=== PATIENT | female | born 1970 | race Caucasian/White ===

== ENCOUNTER 2020-08-22 08:22 | Outpatient (REF) | payer BC, SELFPAY ==
--- NOTE | 2020-08-24 11:41 | MHC.AU.P13 ---
Adult Audiological Evaluation Date of Visit: 08/22/20 Reason for Appointment: Audiological evaluation to monitor the status of Ms. Pope's hearing loss. She has a known bilateral high-frequency sensorineural hearing loss. She uses hearing aids bilaterally. She denies any significant changes to her hearing or medical history. Previous Hearing Test Results[place] [facility] [place]Mild sloping to severe sensorineural hearing loss bilaterally. Medical History: Medical History: Thyroid Disease Hearing Instrument History- Right Ear: Shake Backboard Notcher: Phonak Model: [employer] [id number] Serial Number: [id number] Battery Size: 312 Repair Warranty: 06/01/2015 Loss and Damage Warranty: 06/01/2015 Dispensed By: [facility] Date of Fittin03/09/2013 Hearing Instrument History- Left Ear: Shake Backboard Notcher: Phonak Model: [employer] [id number] Serial Number: [id number] Battery Size: 312 Warranty: 06/01/2015 Loss and Damage Warranty: 06/01/2015 Dispensed By: [facility] Date of Fittin03/09/2013 Otoscopy: Right Ear: Unremarkable Left Ear: Unremarkable Tympanometry: Tympanometry performed due to: To assess integrity of the middle ear system Right Ear: Normal Middle Ear System (Type A) Left Ear: Normal Middle Ear System (Type A) Hearing Evaluation: Transducer(s) Used: Insert Earphones, Bone Conduction Method: Conventional Audiometry Stimuli Used: Pure Tones Right Ear: Description of Hearing: Normal hearing from 250-1500 Hz, sloping to a mild to moderately severe sensorineural hearing loss from 3908-9464 Hz. Left Ear: Description of Hearing: Normal hearing from 250-1500 Hz, sloping to a mild to severe sensorineural hearing loss from 3532-5043 Hz. Speech Recognition Threshold (SRT): Method Used: Monitored Live Voice Stimuli Used: Spondee Words Right Ear: 15 dBHL Left Ear: 15 dBHL Word Discrimination: Method: Recorded Lists Word Lists Used: NU-6 Right Ear: 100% at 65 dBHL Left Ear: 96% at 65 dBHL Comparison: Compared to the most recent evaluation: Hearing is stable. Recommendations: Audiological re-evaluation in one year. Hearing aid maintenance performed today. Given the age of her current hearing aids, Ms. Pope may benefit from updated amplification. It was recommended that she contact [facility] to see if she is eligible for benefits. Diagnosis: Primary Diagnosis: H90.3 Bilateral Sensorineural Hearing Loss Services Performed: Comprehensive Audiological Evaluation (CPT 84712) Tympanometry (CPT 50911) Signature: Provider: Jing Lockett, CCC-A
== END 2020-08-22 08:23 | disposition home or self-care (01) ==
LOC: HO.SH 08:22
PROVIDERS: Visit Provider Pediatrics
DX: H90.3 Sensorineural hearing loss, bilateral (principal)
CPT/HCPCS: 92557; 92567

== ENCOUNTER 2020-08-22 09:08 | Outpatient (REF) | payer SELFPAY | END 2020-08-22 09:09 | disposition home or self-care (01) | LOC: HO.HAP 09:08 | PROVIDERS: Visit Provider Pediatrics | DX: Z46.1 Encounter for fitting and adjustment of hearing aid (principal); H90.3 Sensorineural hearing loss, bilateral | CPT/HCPCS: V5267 ==

== ENCOUNTER 2021-10-17 08:20 | Outpatient (REF) | payer BC, SELFPAY ==
--- NOTE | 2021-10-17 16:20 | MHC.AU.AHA ---
Adult Audiological Evaluation Date of Visit: 10/17/21 Reason for Appointment: Audiological re-evaluation to monitor the status of Cuca's hearing. She has a known bilateral, sensorineural hearing loss and uses hearing aids binaurally. She notes that there's been a few times the hearing aids have stopped working, but has been able to get them working again by changing the tubes. She denies any significant changes to her hearing or medical history. [place] [facility] [place] [facility] [place] Normal hearing through 1500 Hz, sloping to a mild to moderately-severe/severe sensorineural hearing loss bilaterally. Medical History: Medical History: Thyroid Disease, Thyroid ablation Hearing Instrument History- Right Ear: Stummel Selector: [employer] Model: Shoette [id number] Serial Number: [id number] Battery Size: 312 Repair Warranty: 06/01/2015 Loss and Damage Warranty: 06/01/2015 Dispensed By: [facility] Date of Fittin03/09/2013 Hearing Instrument History- Left Ear: Stummel Selector: [employer] Model: Shoette [id number] Serial Number: [id number] Battery Size: 312 Warranty: 06/01/2015 Loss and Damage Warranty: 06/01/2015 Dispensed By: [facility] Date of Fittin03/09/2013 Otoscopy: Right Ear: Unremarkable Left Ear: Unremarkable Tympanometry: Tympanometry performed due to: To assess integrity of the middle ear system Right Ear: Normal Middle Ear System (Type A) Left Ear: Normal Middle Ear System (Type A) Hearing Evaluation: Transducer(s) Used: Insert Earphones, Bone Conduction Method: Conventional Audiometry Stimuli Used: Pure Tones Right Ear: Description of Hearing: Normal hearing from 250-1500 Hz, sloping to a mild to moderately-severe sensorineural hearing loss from 7963-8230 Hz. Left Ear: Description of Hearing: Normal hearing from 250-1000Hz, sloping to a mild to moderately-severe sensorineural hearing loss from 5531-2275 Hz. Speech Recognition Threshold (SRT): Method Used: Monitored Live Voice Stimuli Used: Spondee Words Right Ear: 20 dBHL Left Ear: 20 dBHL Word Discrimination: Method: Recorded Lists Word Lists Used: NU-6 Right Ear: 88% at 65 dBHL Left Ear: 96% at 65 dBHL Comparison: Compared to the most recent evaluation: Hearing is stable. Recommendations: Audiological re-evaluation in one year. Hearing aid maintenance was performed. Given the age of her current devices and the new updates in technology, it is recommended that she pursue new hearing aids. Recommended she contact the [facility] to see if she is eligible again. Diagnosis: Primary Diagnosis: H90.3 Bilateral Sensorineural Hearing Loss Services Performed: Comprehensive Audiological Evaluation (CPT 74563) Tympanometry (CPT 46161) Signature: Provider: Jing Lockett, CCC-A
== END 2021-10-17 08:21 | disposition home or self-care (01) ==
LOC: HO.SH 08:20
PROVIDERS: Visit Provider Pediatrics
DX: H90.3 Sensorineural hearing loss, bilateral (principal)
CPT/HCPCS: 92557; 92567

== ENCOUNTER 2023-10-29 08:14 | Outpatient (REF) | payer SELFPAY ==
--- NOTE | 2023-10-29 08:50 | MHC.AU.HA3 ---
Hearing Instrument Follow-Up- Binaural Date of Visit: 10/29/23 Right Ear: Carlitos, Model, Color, Serial Number: [employer] [id number] Reversing Mill Roller Repair Warranty: 06/01/2015 Reversing [employer] Loss and Damage Warranty: 06/01/2015 Battery Size: 312 [employer]orer/Slim Tube: 2R Earmold/Dome/CShell/SlimTip:Large vented dome Dispensed By: [facility] Date of Fittin03/09/2013 Left Ear: Carlitos, Model, Color, Serial Number: [employer] [id number] SN: [id number] Reversing Mill Roller Repair Warranty: 06/01/2015 Reversing [employer] Roller Loss and Damage Warranty: 06/01/2015 Battery Size: 312 Agriculture Laborer/Slim Tube: 1L Earmold/Dome/CShell/SlimTip: Large vented dome Dispensed By: [facility] Date of Fittin03/09/2013 Follow-Up Summary: Cuca reported left hearing aid weak - Confirmed via listening check. Cleaned both hearing aids. Changed tubes and domes. Did not have size 2L in stock, used 1L. Ran through dehumidifier. Vacuumed microphones. Left hearing aid still weak. Cuca reported size 1L tube comfortable. Discussed options of repair vs replace given age of hearing aids. Cuca would like to pursue new hearing aids; however, has financial concerns. She will reach out to [facility] to determine her eligibility again. Otherwise, she reported she will have to go to [facility]. Recommendations: Hearing instrument follow-up or maintenance as needed. Please contact our clinic with any questions or concerns. Diagnosis Code(s): Primary Diagnosis: H90.3 Bilateral Sensorineural Hearing Loss Signature: Provider: Vanessa Albright, [facility]
== END 2023-10-29 08:15 | disposition home or self-care (01) ==
LOC: HO.HAP 08:14
PROVIDERS: Visit Provider Pediatrics
DX: Z46.1 Encounter for fitting and adjustment of hearing aid (principal); H90.3 Sensorineural hearing loss, bilateral
CPT/HCPCS: 92593